=== PATIENT | female | born 1960 | race Caucasian/White ===

== ENCOUNTER → 2021-06-13 | Outpatient (CLI) | payer MEDICARE, MEDICAID | LOC: COL.RAD 06-12 13:15 | DX: M25.551 Pain in right hip (principal) | CPT/HCPCS: J3301; Q9967 ==

== ENCOUNTER → 2023-10-17 | Outpatient (CLI) | payer MEDICARE ==
[~2023-10-17] MED LIST: MULTI VITAMINS1 TAB PO; NURTEC ODT75 MG PO
== END ==
LOC: COL.RAD 10:02 → EUO 10:02 → COL.RAD 10:15
DX: M47.812 Spondylosis without myelopathy or radiculopathy, cervical region (principal); M48.02 Spinal stenosis, cervical region; M54.59 Other low back pain
CPT/HCPCS: Q9967

== ENCOUNTER 2024-03-05 10:30 | Outpatient (RCR) | payer MEDICARE, MEDICAID | END 2024-03-12 | LOC: PT.GENESIS | DX: M54.2 Cervicalgia (principal) ==

== ENCOUNTER → 2024-09-15 | Outpatient (CLI) | payer MEDICARE, OTHER, MEDICAID | LOC: MHCPAIN 09:59 | DX: M47.812 Spondylosis without myelopathy or radiculopathy, cervical region (principal); M48.02 Spinal stenosis, cervical region; M54.2 Cervicalgia | CPT/HCPCS: G0463 ==